=== PATIENT | female | born 2000 | race Caucasian/White ===

== ENCOUNTER 2018-02-24 15:08 | Emergency (ER) | payer OTHER ==
[2018-02-24 18:36] LABS: URINE BLOOD (Dip) POC Negative (NEGATIVE); URINE GLUCOSE (Dip) POC Negative (NEGATIVE); URINE KETONES (Dip) POC Negative (NEGATIVE); URINE LEUKOCYTE EST (Dip) POC Negative (NEGATIVE); URINE NITRITE (Dip) POC Negative (NEGATIVE); URINE TOTAL PROTEIN POC Negative (NEGATIVE)
[2018-02-24 18:36] LABS: URINE PH (Dip) POC 6.5 (5.0-8.5)
== END 2018-02-24 19:03 | disposition home or self-care (01) ==
LOC: FTE 19:03
DX: L29.2 Pruritus vulvae (principal)
CPT/HCPCS: 81003; 81025; 99283